=== PATIENT | female | born 1995 | race Caucasian/White ===

== ENCOUNTER 2021-02-28 01:20 | Emergency (ER) | payer BC ==
--- NOTE | 2021-02-28 01:47 | EDM.PDOC ---
ED HPI GENERAL MEDICAL PROBLEM - General Chief Complaint: ENT Problem Stated Complaint: Allergy issues, right ear pain Time Seen by Provider: 02/28/21 01:37 Source of Information: Reports: Patient - History of Present Illness INITIAL COMMENTS - FREE TEXT/NARRATIVE: Catrachita is a 25 y/o female who comes to the ER tonight with pain in her right ear. She had had upper resp sx for the last few days and tonyamileth used a Neti pot and now her right ear feels like there is fluid in it and it's very painful. No fever. - Related Data Allergies Allergy/AdvReac Type Severity Reaction Status Date / Time No Known Allergies Allergy Verified 08/31/20 08:40 Home Meds: Home Meds Amoxicillin 875 mg PO BID 7 Days #14 tablet 02/28/21 [Rx] Past Medical History - Infectious Disease History Infectious Disease History: Reports: Novel Coronavirus Review of Systems - Review of Systems Review Of Systems: See Below Constitutional: Reports: No Symptoms Eyes: Reports: No Symptoms Ears: Reports: Other (Right ear pain) Nose: Reports: Congestion Mouth/Throat: Reports: Pain Respiratory: Reports: No Symptoms Cardiovascular: Reports: No Symptoms GI/Abdominal: Reports: No Symptoms Genitourinary: Reports: No Symptoms Musculoskeletal: Reports: No Symptoms Skin: Reports: No Symptoms Neurological: Reports: No Symptoms Psychiatric: Reports: No Symptoms ED EXAM, GENERAL - Physical Exam Exam: See Below Exam Limited By: No Limitations General Appearance: Alert, WD/WN, No Apparent Distress (Adult female) Eye Exam: Bilateral Eye: PERRL Ears: Normal External Exam, Hearing Grossly Normal, Other Ear Exam: Right Ear: TM Red, TM Bulging Nose: Normal Inspection, Normal Mucosa Throat/Mouth: Normal Lips, Normal Voice, Inflammation (Pharynx pink) Neck: Normal Inspection, Supple Respiratory/Chest: No Respiratory Distress, Lungs Clear, Chest Non-Tender Cardiovascular: Normal Peripheral Pulses, Regular Rate, Rhythm, No Murmur GI/Abdominal: Normal Bowel Sounds, Soft, Non-Tender (Female) Exam: Deferred Rectal (Female) Exam: Deferred Extremities: Normal Inspection, Normal Range of Motion, Normal Capillary Refill Neurological: Alert, Oriented, CN II-XII Intact, Normal Cognition Psychiatric: Normal Affect Skin Exam: Warm, Dry, Intact, Normal Color Course - Vital Signs Text/Narrative:: 0137 The patient was seen by the JOB COACH/JOB DEVELOPER. No labs indicated. Will treat her with Amoxicillin for an Otitis Media. SHe was given Amoxicillin 875mg po x 1 in the ER. Her questions were answered. Treatment plan reviewed. She was given written instructions and left the ER in stable condition. - Orders/Labs/Meds Orders: Active Orders 24 hr Category Date Time Status Amoxicillin [Amoxil] Med 02/28/21 01:41 Once 875 mg PO ONETIME ONE Medication Orders Amoxicillin (Amoxicillin 875 Mg Tab) 875 mg PO ONETIME ONE Stop: 02/28/21 01:42 Meds: Medications Generic Name Dose Route Start Last Admin Trade Name Freq PRN Reason Stop Dose Admin Amoxicillin 875 mg 02/28/21 01:41 Amoxicillin 875 Mg Tab PO 02/28/21 01:42 ONETIME ONE Departure - Departure Time of Disposition: 01:42 Disposition: Home, Self-Care 01 Condition: Good Clinical Impression: Otitis media Qualifiers: Chronicity: acute Laterality: right Recurrence: not specified as recurrent Spontaneous tympanic membrane rupture: without spontaneous rupture - Discharge Information *PRESCRIPTION DRUG MONITORING PROGRAM REVIEWED*: Not Applicable *COPY OF PRESCRIPTION DRUG MONITORING REPORT IN PATIENT KIM: Not Applicable Prescriptions: Amoxicillin 875 mg PO BID 7 Days #14 tablet Instructions: Otitis Media, Adult, [id number] - My Orders Last 24 Hours: My Active Orders 02/28/21 01:41 Amoxicillin [Amoxil] 875 mg PO ONETIME ONE - Assessment/Plan Last 24 Hours: My Active Orders 02/28/21 01:41 Amoxicillin [Amoxil] 875 mg PO ONETIME ONE Assessment:: 1)Right Otitis Media Plan: -Amoxicillin 875mg oral 2x daily for 7 days #14 (Rx) -Over the counter meds such as Psuedophed or Claritin and Zyrtec may help --Ibuprofen/Acetaminophen as needed for pain -Fluticasone nasal spray 2 sprays each nares daily -Warm packs to your ear may be comforting -Rest -Stay well hydrated -Return to the clinic if symptoms not better not or come back to the ER for any concerns
[2021-02-28] MEDS: Amoxicillin 875 MG Tab PO ONE (01:50)
== END 2021-02-28 01:57 | disposition home or self-care (01) ==
LOC: VM.ED 01:20
DX: H66.91 Otitis media, unspecified, right ear (principal); Z86.16 Personal history of COVID-19
CPT/HCPCS: 99282; A9270-GY